=== PATIENT | female | born 2000 | race Caucasian/White ===

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

== ENCOUNTER 2023-11-13 01:19 | Emergency (ER) | payer BC ==
[~2023-11-13] VITALS: Ht 160 cm; Wt 94.8 kg
[2023-11-13 02:06] VITALS: BP 133/73; PULSE 100; RESP 18; TEMP 97.8; O2SAT 99
[2023-11-13] MEDS ORDERED: cefTRIAXone 1,000 MG in LIDOCAINE MPF 1% 2.1 ML IM ONE (02:55)
[2023-11-13] MEDS ORDERED: cefTRIAXone 1,000 MG VIAL ONE (02:57)
[2023-11-13] MEDS ORDERED: LIDOCAINE MPF 1% 5 ML ONE (02:57)
[2023-11-13] MEDS ORDERED: NAPR-54 PO (03:43)
[2023-11-13] MEDS ORDERED: PENI500T20 PO (03:43)
== END 2023-11-13 03:55 | disposition home or self-care (01) ==
LOC: MED 01:19
DX: K02.9 Dental caries, unspecified (principal); K12.2 Cellulitis and abscess of mouth; Z79.1 Long term (current) use of non-steroidal anti-inflammatories (NSAID); Z79.2 Long term (current) use of antibiotics
CPT/HCPCS: 96372; 99283; J0696; J2001

== ENCOUNTER 2024-03-27 12:03 | Emergency (ER) | payer BC ==
[~2024-03-27] VITALS: Ht 154.9 cm; Wt 95.3 kg
[~2024-03-27 12:03] MED LIST: NAPR-337 PO; PENI500T20 PO
[2024-03-27 12:25] VITALS: BP 131/89; PULSE 84; RESP 18; TEMP 97.8; O2SAT 100
[2024-03-27 13:00] VITALS: O2SAT 100
[2024-03-27] MEDS ORDERED: ACET-10509 PO (13:26)
[2024-03-27] MEDS ORDERED: IBUP-2213 PO (13:26)
[2024-03-27] MEDS: ACETAMINOPHEN EXTRA STRENGTH 500 MG TAB PO ONE (13:26)
== END 2024-03-27 13:22 | disposition home or self-care (01) ==
LOC: MED 12:03
DX: S69.91XA Unspecified injury of right wrist, hand and finger(s), initial encounter (principal); X58.XXXA Exposure to other specified factors, initial encounter; Y93.89 Activity, other specified; Y92.89 Other specified places as the place of occurrence of the external cause; Y99.8 Other external cause status
CPT/HCPCS: 73110; 81025; 90471; 90715; 99283

== ENCOUNTER 2024-04-03 22:08 | Emergency (ER) | payer BC ==
[~2024-04-03] VITALS: Ht 154.9 cm; Wt 97.1 kg
[~2024-04-03 22:08] MED LIST changes: +ACET-10509 PO; +IBUP-2213 PO
[2024-04-03 22:18] VITALS: BP 141/91; PULSE 83; RESP 14; TEMP 97.6; O2SAT 99
[2024-04-03] MEDS ORDERED: CEPH-588 PO (23:21)
[2024-04-03] MEDS ORDERED: BACI-105 TP (23:21)
[2024-04-03] MEDS: BACITRACIN OINT 500 UNITS/GM PKT TP ONE (23:39)
== END 2024-04-03 23:40 | disposition home or self-care (01) ==
LOC: MED 22:08
DX: T22.211A Burn of second degree of right forearm, initial encounter (principal); T31.0 Burns involving less than 10% of body surface; Z79.899 Other long term (current) drug therapy; X08.8XXA Exposure to other specified smoke, fire and flames, initial encounter; Y93.89 Activity, other specified; Y92.89 Other specified places as the place of occurrence of the external cause; Y99.8 Other external cause status
CPT/HCPCS: 16020; 99283

== ENCOUNTER 2024-05-10 23:49 | Emergency (ER) | payer BC ==
[~2024-05-10] VITALS: Ht 154.9 cm; Wt 95.3 kg
[~2024-05-10 23:49] MED LIST changes: +BACI-105 TP; +CEPH-588 PO
[2024-05-11 00:13] VITALS: BP 125/80; PULSE 84; RESP 16; TEMP 97.2; O2SAT 0
[2024-05-11 00:22] VITALS: O2SAT 100
[2024-05-11 01:00] LABS: BASOPHILS # (AUTO) 0.2 K/uL (0.00-0.22); BASOPHILS % (AUTO) 2.2 % (0.0-2.0); EOSINOPHILS # (AUTO) 0.2 K/uL (0-0.4); EOSINOPHILS % (AUTO) 1.8 % (0.0-4.0); HEMATOCRIT 39.6 % (36-48); HEMOGLOBIN 13.3 g/dL (12.0-16.0); LYMPHOCYTES # (AUTO) 2.3 K/uL (2.5-16.5); LYMPHOCYTES % (AUTO) 22.1 % (20.5-51.1); MEAN CORPUSCULAR HEMOGLOBIN 29 pg (27-31); MEAN CORPUSCULAR HGB CONC 34 g/dL (33-37); MEAN CORPUSCULAR VOLUME 85.5 fL (80-94); MONOCYTES # (AUTO) 0.8 K/uL (0.8-1.0); MONOCYTES % (AUTO) 7.4 % (1.7-9.3); NEUTROPHILS # (AUTO) 6.8 K/uL (1.8-7.7); NEUTROPHILS % (AUTO) 66.5 % (42.2-75.2); PLATELET COUNT (AUTO) 310 K/uL (140-450); RED BLOOD CELL COUNT(AUTO) 4.63 MIL/uL (4.20-5.40); RED CELL DISTRIBUTION WIDTH 14.5 % (11.6-13.7); WHITE BLOOD COUNT (AUTO) 10.2 K/uL (4.8-10.8)
[2024-05-11 01:05] LABS: ANION GAP 12.4 (8-16); CALCIUM 9.4 mg/dL (8.5-10.1); CARBON DIOXIDE 27.9 mmol/L (21-32); CREATININE 0.8 mg/dL (0.6-1.3); POTASSIUM 3.3 mmol/L (3.5-5.1)
[2024-05-11 01:11] LABS: BILIRUBIN,DIRECT 0.1 mg/dL (0.0-0.3); TOTAL BILIRUBIN 0.3 mg/dL (0.0-1.0)
[2024-05-11 01:20] LABS: BILIRUBIN,URINE NEGATIVE (NEGATIVE); BLOOD, URINE TRACE-I (NEGATIVE); COLOR,URINE YELLOW (YELLOW); LEUKOCYTE ESTERASE ,URINE TRACE (NEGATIVE); NITRITE, URINE NEGATIVE (NEGATIVE); PROTEIN,URINE NEGATIVE (NEGATIVE); UGLUCOSE NEGATIVE (NEGATIVE)
[2024-05-11 01:21] LABS: APPEARANCE,URINE SLIGHTLY HAZY (CLEAR)
[2024-05-11 01:26] LABS: BACTERIA,URINE 2+ /HPF (None Seen); MUCUS,URINE None Seen /LPF (None Seen); RBC,URINE 0-5 /HPF (0-5); SQUAMOUS EPITHELIAL CELL,UR 0-3 (FEW) /LPF (0-3 (FEW))
[2024-05-11 03:11] VITALS: O2SAT 100
[2024-05-11 04:28] VITALS: BP 125/80; PULSE 84; RESP 16; TEMP 97.2; O2SAT 100
== END 2024-05-11 04:29 | disposition home or self-care (01) ==
LOC: MED 23:49
DX: R11.2 Nausea with vomiting, unspecified (principal); R10.31 Right lower quadrant pain; R19.7 Diarrhea, unspecified; Z79.2 Long term (current) use of antibiotics; Z79.899 Other long term (current) drug therapy
CPT/HCPCS: 36415; 80048; 80076; 81001; 81025; 83690; 85025; 87086; 99284